=== PATIENT | male | born 1965 | race Caucasian/White ===

== ENCOUNTER 2019-08-27 18:18 | Emergency (ER) | payer BC ==
[~2019-08-27] VITALS: Ht 180.3 cm; Wt 88.5 kg
[2019-08-27 18:20] VITALS: BP_SYST 150
--- NOTE | 2019-08-27 18:40 | NUR ---
Patient is awake, alert, and oriented x4. Patient stated he started feeling under the weather yesterday. Today he went on a hike and took a nap afterwards. When he woke up, he had chestwall pain. Patient presents with chest pressure 6/10 that radiates to the back, nausea, diarrhea, and non productive cough.
--- NOTE | 2019-08-27 18:49 | NUR ---
SEEN AND EVALUATED BY LOKIE DRIVER URBANO
--- NOTE | 2019-08-27 18:50 | NUR ---
Maggi christianson in [facility] - 08/27/19 at 1850 by SANGEETA SAUNDRA Licea examining patient.
[2019-08-27] MEDS ORDERED: IBUPROFEN 800 MG TABLET PO ONE (19:00)
[2019-08-27] MEDS ORDERED: IPRATROPIUM/ALBUTEROL SULFATE 3 ML AMPUL.NEB (DUONEB) INH ONE (19:00)
--- NOTE | 2019-08-27 19:09 | NUR ---
Report given to PAULINE Barrios for continuation of care.
[2019-08-27] MEDS ORDERED: IBUPROFEN 800 MG TABLET ONE (19:58)
--- NOTE | 2019-08-27 20:00 | NUR ---
VSS no s/s of acute distress Resting on gurney rails up
[2019-08-27 21:30] VITALS: BP_SYST 150
--- NOTE | 2019-08-27 21:30 | NUR ---
Patient given written and verbal discharge instructions and verbalizes understanding. ER MD discussed with patient the results and treatment provided. Patient in stable condition. ID arm band removed. Rx of Azithromycin, Motrin, Prednisone, Albuterol, and Promethazine given. Patient educated on pain management and to follow up with PMD. Pain Scale 0/10 Opportunity for questions provided and answered. Medication side effect fact sheet provided.
== END 2019-08-27 21:30 | disposition home or self-care (01) ==
LOC: SED 18:18
DX: J06.9 Acute upper respiratory infection, unspecified (principal); R03.0 Elevated blood-pressure reading, without diagnosis of hypertension; F17.210 Nicotine dependence, cigarettes, uncomplicated
CPT/HCPCS: 71046; 86710; 93005; 94640; 99284; J7620; 36415

== ENCOUNTER 2019-09-02 18:52 | Inpatient (IN) | payer BC ==
[~2019-09-02] VITALS: Ht 180.3 cm; Wt 90.7 kg
[2019-09-02 19:38] VITALS: BP_SYST 132
[2019-09-03 04:34] LABS: BASOPHILS # (AUTO) 0.2 K/uL (0.0-0.2); BASOPHILS % (AUTO) 3.1 % (0.0-2.0); EOSINOPHILS # (AUTO) 0.1 K/uL (0.0-0.4); EOSINOPHILS % (AUTO) 1.8 % (0.0-4.0); HEMATOCRIT 48.3 % (36-54); HEMOGLOBIN 16.3 g/dL (14.0-18.0); LYMPHOCYTES # (AUTO) 1.9 K/uL (1.0-5.5); LYMPHOCYTES % (AUTO) 34.3 % (20.5-51.5); MEAN CORPUSCULAR HEMOGLOBIN 31 pg (27-31); MEAN CORPUSCULAR HGB CONC 34 % (32-36); MEAN CORPUSCULAR VOLUME 92 fL (79.0-98.0); MONOCYTES # (AUTO) 0.6 K/uL (0.0-1.0); NEUTROPHILS # (AUTO) 2.7 K/uL (1.8-7.7); NEUTROPHILS % (AUTO) 49.8 % (40.0-70.0); PLATELET COUNT (AUTO) 158 K/uL (130-430); RED BLOOD CELL COUNT(AUTO) 5.27 MIL/uL (4.2-6.2); RED CELL DISTRIBUTION WIDTH 13.7 % (9.0-15.0); WHITE BLOOD COUNT (AUTO) 5.5 K/uL (4.8-10.8)
[2019-09-03 04:45] LABS: CALCIUM 8.4 mg/dL (8.4-11.0); CREATININE 0.76 mg/dL (0.55-1.30); POTASSIUM 3.7 mmol/L (3.5-5.1)
[2019-09-03 04:51] LABS: ALBUMIN 3.6 g/dL (3.4-4.8); TOTAL BILIRUBIN 0.4 mg/dL (0.0-1.0)
[2019-09-03] MEDS ORDERED: IPRATROPIUM/ALBUTEROL SULFATE 3 ML AMPUL.NEB (DUONEB) INH ONE (05:15)
[2019-09-03] MEDS ORDERED: MAGNESIUM SULFATE 50 ML IV ONE (05:15)
[2019-09-03] MEDS ORDERED: methylPREDNISolone SOD SUCC/PF 62.5 MG/ML VIAL IVP ONE (05:15)
[2019-09-03] MEDS ORDERED: ALBUTEROL SULFATE 0.083% 2.5 MG/3 ML VIAL.NEB INH ONE (06:30)
[2019-09-03] MEDS ORDERED: OSELTAMIVIR PHOSPHATE 75 MG CAPSULE PO ONE (06:30)
[2019-09-03 08:39] VITALS: BP_SYST 134
[2019-09-03] MEDS ORDERED: ACETAMINOPHEN 325 MG TABLET PO PRN (10:15)
[2019-09-03] MEDS ORDERED: BUDESONIDE 0.5 MG/2 ML AMPUL.NEB INH ONE (11:30)
[2019-09-03 11:31] VITALS: BP_SYST 134
[2019-09-03] MEDS ORDERED: FAMOTIDINE 20 MG TABLET PO ONE (11:33)
[2019-09-03 12:30] VITALS: BP_SYST 136
[2019-09-03] MEDS ORDERED: IPRATROPIUM/ALBUTEROL SULFATE 3 ML AMPUL.NEB (DUONEB) INH SCH (13:00)
[2019-09-03] MEDS ORDERED: guaiFENesin 200 MG/CODEINE 20 MG/ 10 ML UDC PO PRN (13:15)
[2019-09-03] MEDS ORDERED: methylPREDNISolone SOD SUCC 40 MG/ML VIAL IVP SCH (14:00)
[2019-09-03] MEDS: methylPREDNISolone SOD SUCC/PF 62.5 MG/ML VIAL IVP SCH ×2 (15:35→23:03)
[2019-09-03] MEDS: POTASSIUM CHLORIDE 10 MEQ in NACL 0.9% 1,000 ML IV SCH (15:35)
[2019-09-03 20:00] VITALS: BP_SYST 133
[2019-09-03] MEDS: IPRATROPIUM/ALBUTEROL SULFATE 3 ML AMPUL.NEB (DUONEB) INH SCH (20:36)
[2019-09-03] MEDS: BUDESONIDE 0.5 MG/2 ML AMPUL.NEB INH SCH (20:46)
[2019-09-04] VITALS: BP_SYST 137
[2019-09-04] MEDS: IPRATROPIUM/ALBUTEROL SULFATE 3 ML AMPUL.NEB (DUONEB) INH SCH ×6 (03:00→23:00)
[2019-09-04] MEDS: methylPREDNISolone SOD SUCC/PF 62.5 MG/ML VIAL IVP SCH ×3 (06:49→22:25)
[2019-09-04] MEDS: POTASSIUM CHLORIDE 10 MEQ in NACL 0.9% 1,000 ML IV SCH ×2 (06:49→21:00)
[2019-09-04 07:29] LABS: BASOPHILS % (AUTO) 0.1 % (0.0-2.0); HEMATOCRIT 47.7 % (36-54); HEMOGLOBIN 15.9 g/dL (14.0-18.0); LYMPHOCYTES # (AUTO) 0.6 K/uL (1.0-5.5); LYMPHOCYTES % (AUTO) 7.9 % (20.5-51.5); MEAN CORPUSCULAR HEMOGLOBIN 31 pg (27-31); MEAN CORPUSCULAR HGB CONC 34 % (32-36); MEAN CORPUSCULAR VOLUME 93 fL (79.0-98.0); MONOCYTES # (AUTO) 0.4 K/uL (0.0-1.0); MONOCYTES % (AUTO) 5.1 % (1.7-9.3); NEUTROPHILS # (AUTO) 6.8 K/uL (1.8-7.7); NEUTROPHILS % (AUTO) 86.9 % (40.0-70.0); PLATELET COUNT (AUTO) 152 K/uL (130-430); RED BLOOD CELL COUNT(AUTO) 5.15 MIL/uL (4.2-6.2); RED CELL DISTRIBUTION WIDTH 13.7 % (9.0-15.0); WHITE BLOOD COUNT (AUTO) 7.8 K/uL (4.8-10.8)
[2019-09-04 07:52] LABS: CALCIUM 8.5 mg/dL (8.4-11.0); CREATININE 0.77 mg/dL (0.55-1.30)
[2019-09-04 08:31] LABS: THYROID STIMULATING HORMONE 0.39 uIu/mL (0.36-3.74)
[2019-09-04 09:00] VITALS: BP_SYST 150
[2019-09-04] MEDS: FAMOTIDINE 20 MG TABLET PO SCH (09:18)
[2019-09-04] MEDS: LEVOFLOXACIN 500 MG/D5W 100 ML IV SCH (09:18)
[2019-09-04] MEDS: BUDESONIDE 0.5 MG/2 ML AMPUL.NEB INH SCH ×2 (11:33→21:00)
[2019-09-04 13:41] VITALS: BP_SYST 156
[2019-09-04 16:42] VITALS: BP_SYST 147
[2019-09-04 23:48] VITALS: BP_SYST 134
[2019-09-05] MEDS: methylPREDNISolone SOD SUCC/PF 62.5 MG/ML VIAL IVP SCH ×2 (05:46→16:32)
[2019-09-05] MEDS: IPRATROPIUM/ALBUTEROL SULFATE 3 ML AMPUL.NEB (DUONEB) INH SCH ×3 (07:00→15:00)
[2019-09-05 08:00] VITALS: BP_SYST 151
[2019-09-05] MEDS: BUDESONIDE 0.5 MG/2 ML AMPUL.NEB INH SCH (09:00)
[2019-09-05] MEDS: POTASSIUM CHLORIDE 10 MEQ in NACL 0.9% 1,000 ML IV SCH (09:20)
[2019-09-05] MEDS: LEVOFLOXACIN 500 MG/D5W 100 ML IV SCH (09:21)
[2019-09-05] MEDS: FAMOTIDINE 20 MG TABLET PO SCH (09:21)
[2019-09-05 11:22] VITALS: BP_SYST 148
[2019-09-05 15:51] VITALS: BP_SYST 148
[2019-09-05 19:32] VITALS: BP_SYST 156
[2019-09-05] MEDS ORDERED: LEVO750T45 PO (19:44)
[2019-09-05 19:45] VITALS: BP_SYST 145
[2019-09-05] MEDS ORDERED: PRED20TA PO (19:46)
== END 2019-09-05 20:00 | disposition home or self-care (01) | DRG 202 ==
LOC: SED 18:52 → STU 09-03 06:52
PROVIDERS: ADMIT Internal Medicine; ATTEND Internal Medicine
DX: J20.9 Acute bronchitis, unspecified (principal); J44.1 Chronic obstructive pulmonary disease with (acute) exacerbation; J44.0 Chronic obstructive pulmonary disease with (acute) lower respiratory infection; F17.210 Nicotine dependence, cigarettes, uncomplicated; B19.20 Unspecified viral hepatitis C without hepatic coma; I10 Essential (primary) hypertension; Z79.899 Other long term (current) drug therapy
CPT/HCPCS: 36415; 36600; 71045; 80048; 80053; 82803-TC; 83735-TC; 84443-TC; 85025; 86710; 87040-TC; 93005; 93306; 94640; 94760; 96365; 96375; 99285; G0378; G9035; J1956; J2930; J3480; J7030; J7613; J7620; J7626

== ENCOUNTER 2022-10-23 17:04 | Emergency (ER) | payer BC ==
[~2022-10-23] VITALS: Ht 180.3 cm; Wt 89.8 kg
[~2022-10-23 17:04] MED LIST: LEVO750T64 PO; PRED20TA PO
[2022-10-23 17:18] VITALS: BP_SYST 157
--- NOTE | 2022-10-23 17:23 | NUR ---
Patient triaged and placed in waiting room. VSS and patient appears in no acute distress at this time. Accompanied by SPOUSE, awaiting available bed, and MD notified of need for MSE.
[2022-10-23] MEDS ORDERED: LIDOCAINE PATCH 5% 1 EA TP ONE (18:15)
[2022-10-23] MEDS ORDERED: methocarbamoL 500 MG TABLET PO ONE (18:15)
[2022-10-23] MEDS ORDERED: OXYCODONE/ACETAMINOPHEN *10*mg/325 mg TABLET PO ONE (18:15)
[2022-10-23] MEDS ORDERED: predniSONE 20 MG TABLET PO ONE (18:15)
[2022-10-23] MEDS ORDERED: KETOROLAC TROMETHAMINE 30 MG VIAL IM ONE (18:15)
[2022-10-23] MEDS ORDERED: METH-634 PO ×3 (19:15→20:21)
[2022-10-23] MEDS ORDERED: HYDR-3917 PO ×3 (19:15→20:21)
[2022-10-23] MEDS ORDERED: PRED20TA PO ×3 (19:15→20:21)
[2022-10-23] MEDS ORDERED: NAPR-1172 PO ×3 (19:15→20:21)
[2022-10-23] MEDS ORDERED: MORPHINE 4 MG INJ. 4 MG/ML VIAL IM ONE (19:45)
[2022-10-23 20:40] VITALS: BP_SYST 138
--- NOTE | 2022-10-23 20:42 | NUR ---
Patient given written and verbal discharge instructions and verbalizes understanding. ER MD discussed with patient the results and treatment provided. Patient in stable condition. ID arm band removed. IV catheter removed intact and dressing applied, no active bleeding. Rx of NORCO, ROBAXIN, NAPROXEN, PREDNISONE given. Patient educated on pain management and to follow up with PMD. Pain Scale . Opportunity for questions provided and answered. Medication side effect fact sheet provided.
== END 2022-10-23 20:40 | disposition home or self-care (01) ==
LOC: SED 17:04
DX: M54.42 Lumbago with sciatica, left side (principal); J44.9 Chronic obstructive pulmonary disease, unspecified; I10 Essential (primary) hypertension
CPT/HCPCS: 99284; 96372; J7512; J1885; J2270